=== PATIENT | female | born 1955 | race Hispanic/Latino ===

== ENCOUNTER 2019-06-02 08:37 | Outpatient (CLI) | payer OTHER ==
--- NOTE | 2019-06-02 09:29 | RAD ---
XR Chest Pa Lat STANDARD HISTORY: Sore throat COMPARISON: None FINDINGS: The heart size is normal. The lungs are well expanded without focal areas of consolidation, pneumothorax or pleural effusions. There is minimal scarring at the left lung base. Degenerative changes seen in the spine. IMPRESSION: No radiographic evidence of acute cardiopulmonary process.
== END 2019-06-02 08:38 | disposition home or self-care (01) ==
LOC: BICRAD 08:37
PROVIDERS: ATTEND Internal Medicine
DX: J02.9 Acute pharyngitis, unspecified (principal)
CPT/HCPCS: 71046

== ENCOUNTER 2020-09-12 11:02 | Outpatient (CLI) | payer OTHER | END 2020-09-12 11:03 | disposition home or self-care (01) | LOC: BICRAD 11:02 | PROVIDERS: ATTEND Internal Medicine Critical Care Medicine | DX: R06.00 Dyspnea, unspecified (principal) | CPT/HCPCS: 71046 ==

== ENCOUNTER 2020-09-20 14:38 | Outpatient (CLI) | payer OTHER | END 2020-09-20 14:39 | disposition home or self-care (01) | LOC: BICRAD 14:38 | PROVIDERS: ATTEND Family Medicine | DX: M79.641 Pain in right hand (principal); M19.041 Primary osteoarthritis, right hand ==